=== PATIENT | female | born 1965 | race Caucasian/White ===

== ENCOUNTER 2017-02-16 20:33 | Emergency (ER) | payer OTHER ==
[~2017-02-16] VITALS: Ht 157.5 cm; Wt 48.6 kg
[~2017-02-16 20:33] MED LIST: macrobid PO
[2017-02-16 20:39] VITALS: BP 119/81; PULSE 71; RESP 15; O2SAT 100
[2017-02-16] MEDS ORDERED: TdaP Vaccine 0.5 mL Inj IM ONE (23:20)
[2017-02-16] MEDS ORDERED: Hepatitis-B (Adult) Vaccine 20 mCg/1 mL Inj IM ONE (23:20)
[2017-02-16 23:34] LABS: APPEARANCE,URINE CLEAR (CLEAR,HAZY); COLOR,URINE YELLOW (YELLOW); OCCULT BLOOD,URINE NEGATIVE (NEGATIVE); PH,URINE 5.5 (5.0-8.0)
[2017-02-17] MEDS ORDERED: cefTRIAXone Inj 250 MG, Lidocaine PF 1% Inj 0.9 ML in Syringe 1 EACH IM ONE (01:20)
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
[2017-02-17] MEDS ORDERED: cefTRIAXone 1,000 mg Inj IM ONE (01:25)
[2017-02-17 03:47] VITALS: BP 122/80; PULSE 72; RESP 16; O2SAT 100
== END 2017-02-17 03:55 | disposition home or self-care (01) ==
LOC: SED 20:33
DX: T74.21XA Adult sexual abuse, confirmed, initial encounter (principal); S70.02XA Contusion of left hip, initial encounter; R07.9 Chest pain, unspecified; X58.XXXA Exposure to other specified factors, initial encounter; Y93.89 Activity, other specified; Y99.8 Other external cause status; Y92.193 Bedroom in other specified residential institution as the place of occurrence of the external cause; J45.909 Unspecified asthma, uncomplicated; F17.200 Nicotine dependence, unspecified, uncomplicated; F12.10 Cannabis abuse, uncomplicated; R51 Headache; Z87.820 Personal history of traumatic brain injury; Z59.0 Homelessness; Z86.73 Personal history of transient ischemic attack (TIA), and cerebral infarction without residual deficits; Z88.7 Allergy status to serum and vaccine; Z86.79 Personal history of other diseases of the circulatory system; Z98.890 Other specified postprocedural states; Z88.1 Allergy status to other antibiotic agents; Z88.5 Allergy status to narcotic agent; Z88.6 Allergy status to analgesic agent
CPT/HCPCS: 36415; 81000; 84484; 86592; 86706; 87086; 87340; 87491; 87591; 90471; 90715; 90746; 96372; 99285; G0433; J0696; J1885

== ENCOUNTER 2017-02-17 04:58 | Emergency (ER) | payer OTHER ==
[~2017-02-17] VITALS: Ht 157.5 cm; Wt 110.0 kg
[2017-02-17 05:22] VITALS: BP 126/63; PULSE 80; RESP 18; O2SAT 98
[2017-02-17 05:46] VITALS: BP 124/49; PULSE 69; RESP 16; O2SAT 95
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
[2017-02-17] MEDS ORDERED: 0.9% Sodium Chloride 1,000 ML IV ONE (06:26)
[2017-02-17 06:57] LABS: Mean Corpuscular Hemoglobin 32.1 pg (27.0-35.0); Mean Corpuscular Volume 94.6 fL (81-100)
[2017-02-17] MEDS ORDERED: Ondansetron 2 mg/mL 2 mL Inj ONE (07:30)
--- NOTE | 2017-02-17 07:55 | DRSVH ---
PROCEDURE: CT BRAIN WITHOUT CONTRAST ([id number]) INDICATIONS: trauma TECHNIQUE: Noncontrast 4.5 mm thick angled axial sections acquired from the foramen magnum to the vertex, with c oronal reformats. COMPARISON: None. FINDINGS: Image quality: Excellent. CSF spaces: Basal cisterns are patent. No extra-axial fluid collections. Ventricles are normal in size and shape. Brain: Slight left to right midline shift compatible with volume loss on the right. No intracranial masses or hemorrhage. Hurd-white matter interface is normal. Encephalomalacia is present in the righ t temporoparietal lobes, subadjacent to the craniotomy defect. Chronic lacunar infarct in the right b dary ganglia additional small vessel ischemic changes in the left centrum seminal ovale. Skull and face: Large right temporoparietal craniotomy defect, surgical clips over the temporal nathaniel on, no bone plate in place. Calvarium and visualized facial bones otherwise are intact, without suspi cious lesions. Sinuses: Visualized sinuses and mastoids are clear. IMPRESSION: 1. No acute hemorrhage or other intracranial process. 2. Postoperative changes right temporoparietal craniotomy with subadjacent chronic volume loss and en cephalomalacia. 3. Early age related chronic deep white matter ischemic changes. Dictated by: Enrique Berg M.D. on 02/17/2017 at 7:50 Approved by: Enrique Berg M.D. on 02/17/2017 at 7:54
[2017-02-17 09:45] VITALS: BP 111/75; PULSE 82; RESP 14; O2SAT 95
== END 2017-02-17 10:33 | disposition home or self-care (01) ==
LOC: SED 04:58
DX: T48.1X1A Poisoning by skeletal muscle relaxants [neuromuscular blocking agents], accidental (unintentional), initial encounter (principal); R51 Headache; W01.10XA Fall on same level from slipping, tripping and stumbling with subsequent striking against unspecified object, initial encounter; Y93.89 Activity, other specified; Y92.9 Unspecified place or not applicable; Y99.8 Other external cause status; I10 Essential (primary) hypertension; J44.9 Chronic obstructive pulmonary disease, unspecified; G40.909 Epilepsy, unspecified, not intractable, without status epilepticus; F31.9 Bipolar disorder, unspecified; F41.8 Other specified anxiety disorders; E78.5 Hyperlipidemia, unspecified; F17.200 Nicotine dependence, unspecified, uncomplicated; Z86.73 Personal history of transient ischemic attack (TIA), and cerebral infarction without residual deficits; I67.1 Cerebral aneurysm, nonruptured; Z98.890 Other specified postprocedural states; Z88.1 Allergy status to other antibiotic agents; Z88.4 Allergy status to anesthetic agent; Z88.5 Allergy status to narcotic agent; Z88.6 Allergy status to analgesic agent; Z88.8 Allergy status to other drugs, medicaments and biological substances
CPT/HCPCS: 36415; 70450; 80053; 81002; 82075; 85027; 90791; 93005; 96374; 99285; G0480; J2405; J7030

== ENCOUNTER 2017-02-23 19:37 | Emergency (ER) | payer OTHER ==
[~2017-02-23] VITALS: Ht 157.5 cm; Wt 45.5 kg
[2017-02-23 19:51] VITALS: BP 154/71; PULSE 89; RESP 16; O2SAT 96
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
[2017-02-23] MEDS ORDERED: HYDROcodone-APAP 5-325 mg Tablet PO ONE (23:05)
[2017-02-24 01:26] VITALS: BP 118/67; PULSE 72; RESP 18; O2SAT 97
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
== END 2017-02-24 01:28 | disposition home or self-care (01) ==
LOC: SED 19:37
DX: T76.21XA Adult sexual abuse, suspected, initial encounter (principal); R07.89 Other chest pain; B85.2 Pediculosis, unspecified; M54.9 Dorsalgia, unspecified; Y04.8XXA Assault by other bodily force, initial encounter; Y93.89 Activity, other specified; Y92.89 Other specified places as the place of occurrence of the external cause; Y99.8 Other external cause status; I10 Essential (primary) hypertension; E78.5 Hyperlipidemia, unspecified; Z87.820 Personal history of traumatic brain injury; Z86.73 Personal history of transient ischemic attack (TIA), and cerebral infarction without residual deficits; Z90.710 Acquired absence of both cervix and uterus; F17.200 Nicotine dependence, unspecified, uncomplicated; Z88.1 Allergy status to other antibiotic agents; Z88.5 Allergy status to narcotic agent; Z88.8 Allergy status to other drugs, medicaments and biological substances

== ENCOUNTER 2017-02-24 05:08 | Emergency (ER) | payer OTHER ==
[~2017-02-24] VITALS: Ht 157.5 cm; Wt 100.0 kg
[2017-02-24 05:12] VITALS: BP 135/88; PULSE 72; RESP 16; O2SAT 98
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
== END 2017-02-24 07:14 | disposition home or self-care (01) ==
LOC: SED 05:08
DX: Z59.0 Homelessness (principal); J44.9 Chronic obstructive pulmonary disease, unspecified; I10 Essential (primary) hypertension; F29 Unspecified psychosis not due to a substance or known physiological condition; F41.9 Anxiety disorder, unspecified; F32.9 Major depressive disorder, single episode, unspecified; E78.5 Hyperlipidemia, unspecified; J45.909 Unspecified asthma, uncomplicated; F17.200 Nicotine dependence, unspecified, uncomplicated; Z86.73 Personal history of transient ischemic attack (TIA), and cerebral infarction without residual deficits; Z87.820 Personal history of traumatic brain injury; Z86.19 Personal history of other infectious and parasitic diseases; Z88.8 Allergy status to other drugs, medicaments and biological substances; Z88.5 Allergy status to narcotic agent; Z88.1 Allergy status to other antibiotic agents

== ENCOUNTER 2017-03-03 18:02 | Emergency (ER) | payer OTHER ==
[~2017-03-03] VITALS: Ht 157.5 cm; Wt 50.0 kg
[2017-03-03 18:33] VITALS: BP 158/92; PULSE 70; RESP 16; O2SAT 99
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
== END 2017-03-03 20:28 ==
LOC: SED 18:02
DX: Z59.0 Homelessness (principal); I10 Essential (primary) hypertension; F15.10 Other stimulant abuse, uncomplicated; F17.200 Nicotine dependence, unspecified, uncomplicated; J45.909 Unspecified asthma, uncomplicated; E78.5 Hyperlipidemia, unspecified; Z86.79 Personal history of other diseases of the circulatory system; Z86.73 Personal history of transient ischemic attack (TIA), and cerebral infarction without residual deficits; Z88.8 Allergy status to other drugs, medicaments and biological substances; Z88.5 Allergy status to narcotic agent; Z88.1 Allergy status to other antibiotic agents

== ENCOUNTER 2017-03-05 09:27 | Emergency (ER) | payer OTHER ==
[2017-03-05 09:42] VITALS: BP 113/60; PULSE 78; RESP 18; O2SAT 94
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
[2017-03-05 11:55] LABS: APPEARANCE,URINE HAZY (CLEAR,HAZY); COLOR,URINE YELLOW (YELLOW)
[2017-03-05 11:56] LABS: OCCULT BLOOD,URINE NEGATIVE (NEGATIVE)
[2017-03-05 15:39] VITALS: BP 118/62; PULSE 75; RESP 18; O2SAT 95
[2017-03-05 15:44] VITALS: BP 118/62; PULSE 75; RESP 18; O2SAT 95
== END 2017-03-05 15:46 | disposition home or self-care (01) ==
LOC: EDBD 09:27 → EDUNIT# 09:27 → SED 09:27
DX: F29 Unspecified psychosis not due to a substance or known physiological condition (principal); I10 Essential (primary) hypertension; J44.9 Chronic obstructive pulmonary disease, unspecified; F17.200 Nicotine dependence, unspecified, uncomplicated; F12.10 Cannabis abuse, uncomplicated; Z86.73 Personal history of transient ischemic attack (TIA), and cerebral infarction without residual deficits; Z86.79 Personal history of other diseases of the circulatory system; Z98.890 Other specified postprocedural states; Z87.820 Personal history of traumatic brain injury; Z59.0 Homelessness; Z88.1 Allergy status to other antibiotic agents; Z88.8 Allergy status to other drugs, medicaments and biological substances; Z88.5 Allergy status to narcotic agent

== ENCOUNTER 2017-03-05 18:19 | Emergency (ER) | payer OTHER ==
[~2017-03-05] VITALS: Ht 157.5 cm; Wt 50.9 kg
[2017-03-05 18:49] VITALS: PULSE 70; RESP 16; O2SAT 97
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
== END 2017-03-05 20:10 | disposition home or self-care (01) ==
LOC: SED 18:19
DX: Z59.0 Homelessness (principal); I10 Essential (primary) hypertension; E78.5 Hyperlipidemia, unspecified; Z87.820 Personal history of traumatic brain injury; Z90.710 Acquired absence of both cervix and uterus; F17.200 Nicotine dependence, unspecified, uncomplicated; Z88.1 Allergy status to other antibiotic agents; Z88.5 Allergy status to narcotic agent; Z88.8 Allergy status to other drugs, medicaments and biological substances